=== PATIENT | male | born 1980 | race Hispanic/Latino ===

== ENCOUNTER → 2023-02-26 10:46 | Outpatient (BNV) | payer MEDICAID, SELFPAY ==
--- NOTE | 2023-02-26 10:46 | PD.URODRB ---
Questionnaires Social History Living Situation History Housing: Retirement Housing Other:: pt is from our [facility] Tobacco History Smoking Status: Never smoker Second Hand Smoke Exposure: No Alcohol History Alcohol Intake: Former Alcohol Intake Frequency: A Few Times a Week Review of Systems Report any current symtoms Select symptoms you are currently experiencing: Past Medical History Past Medical History Have you ever been diagnosed with any of the following: Neurological Problems Cerebrovascular Accident (CVA): Yes Cardiology Problems Congestive Heart Failure: No Hypertension: Yes Respiratory Problems Chronic Obstructive Pulmonary Disease (COPD): No Genital/Urinary Problems Renal Disease: No Neurogenic Bladder: Yes Endocrine Problems Diabetes Mellitus Type 1: No Diabetes Mellitus Type 2: No Other Problems Hospitalization: Yes Blood Transfusions: No Anesthesia Reactions: No MRSA: No Provider Notes Provider Notes HISTORY OF PRESENT ILLNESS: [This is a 42-year-old gentleman he is from [facility] He has established diagnosis of 1. Brain aneurysm s/p rupture 3 months ago 2. Is chronic respiratory failure s/p tracheostomy tube placement 3. Persistent vegetative state 4. Neurogenic bladder status post placement of Whitaker catheter 5. Is hypertension 6. Is chronic anoxic encephalopathy This is a 42-year-old gentleman he is seen by me on surgical floor. Unable to obtain history from the patient patient has indwelling Whitaker catheter because of neurogenic bladder and he also has a history of recurrent urinary tract infection. The reason for consultation was placement of suprapubic cystostomy tube] REVIEW OF SYSTEMS: ROS unobtainable due to medical condition EXAM: On examination patient is lying comfortably in the bed he is status post tracheostomy tube. HEENT no jaundice chest symmetrical heart regular rate and rhythm abdomen is soft nontender no masses extremities quadriplegic skin is warm and dry Various labs BUN is 14 creatinine 0.7 ASSESSMENT & PLAN: Neurogenic bladder due to medical issues patient is catheter dependent. I talked to his hospitalist Dr. Steen Risk of placement of percutaneous nephrostomy were explained to him in great detail these are followings #1 anesthetic complication #2 is wound infection #3 is sepsis and suprapubic cystostomy tube has to be changed once a month I got the impression patient has history of urethral stricture he has indwelling Whitaker catheter which showed a dilated the stricture and the replacement of Whitaker catheter should not be difficult once a month the risk of the surgery are much more than the benefits and of dictation thank VISIT DIAGNOSIS: []
== END ==
PROVIDERS: Visit Provider Urology